=== PATIENT | male | born 1955 | race Caucasian/White ===

== ENCOUNTER 2021-07-23 08:18 | Day surgery (SDC) | payer OTHER ==
[~2021-07-23] VITALS: Ht 180.3 cm; Wt 83.9 kg
[~2021-07-23 08:18] MED LIST: MELOXICAM15 MG PO; ZESTRIL10 M1 PO
[2021-07-23 10:05] VITALS: BP 113/82
== END 2021-07-23 10:20 | disposition home or self-care (01) | DRG 951 ==
LOC: ENDO 08:18 → ORM 09:00 → ENDO 09:30
PROVIDERS: ATTEND Surgery
PROC: 0DJD8ZZ Inspection of Lower Intestinal Tract, Via Natural or Artificial Opening Endoscopic (ICD-10-PCS; principal; 2021-07-23)
DX: Z12.11 Encounter for screening for malignant neoplasm of colon (principal); I10 Essential (primary) hypertension; Z86.010 Personal history of colon polyps